=== PATIENT | female | born 1970 | race Caucasian/White ===

== ENCOUNTER → 2017-03-13 | Outpatient (CLI) | payer OTHER ==
[~2017-03-13] MED LIST: ANTIVERT/2525 MG PO; ZOFRAN ODT4 MG SL
[2017-03-14 14:07] LABS: LYME AB/TOTAL IMMUNOGLOBULINS <0.91 ISR (0.00-0.90)
== END | disposition home or self-care (01) ==
LOC: LAB 16:13
PROVIDERS: Physician Assistant
DX: R20.0 Anesthesia of skin (principal)

== ENCOUNTER 2025-01-19 01:21 | Emergency (ER) | payer OTHER ==
[~2025-01-19] VITALS: Ht 170.1 cm; Wt 105.2 kg
[2025-01-19 02:12] LABS: BASO # 0.1 10*3/uL (0.0-0.1); BASO % 0.7 % (0.0-1.0); EOS # 0.3 10*3/uL (0.0-0.4); EOS % 2.9 % (1.0-4.0); MEAN CORPUSCULAR HGB 31.7 pg (27.0-31.0); MEAN CORPUSCULAR HGB CONC 33.3 g/dl (33.0-37.0); MEAN PLATELET VOLUME 9.4 fl (9.6-12.3); MONO # 0.6 10*3/uL (0.1-1.0); MONO % 6.2 % (3.0-9.0); NEUT # 6.9 10*3/uL (2.3-7.9); NEUT % 72.3 % (47.0-73.0); PLATELET COUNT AUTOMATED 236 10*3/uL (130-400); RED BLOOD COUNT 4.42 10*6/uL (4.10-5.10); RED CELL DISTRI WIDTH 13.5 % (0-14.5); WHITE BLOOD COUNT 9.5 10*3/uL (4.8-10.8)
[2025-01-19 02:41] LABS: ALKALINE PHOSPHATASE 109 U/L (46-116); BUN 16 mg/dl (9-23); CHLORIDE 106 mmol/L (98-107); CPK 85 U/L (34-171); LIPASE 48 U/L (12-53); POTASSIUM 3.7 mmol/L (3.4-5.1); SGPT/ALT 123 U/L (5-49); TOTAL PROTEIN 6.4 gm/dL (6.0-8.0)
[2025-01-19] MEDS ORDERED: diphenhydrAMINE hydrochloride 50 MG/ML VIAL IV ONE (04:40)
[2025-01-19] MEDS ORDERED: Pantoprazole Sodium 40 MG VIAL IV ONE (04:40)
[2025-01-19] MEDS ORDERED: Metoclopramide Hydrochloride 10 MG/2 ML VIAL IV ONE (04:40)
[2025-01-19] MEDS ORDERED: REGLAN10 M1 PO (04:42)
[2025-01-19] MEDS ORDERED: Ondansetron4 MG PO (04:42)
== END 2025-01-19 05:03 | disposition home or self-care (01) ==
LOC: ED 01:21
PROVIDERS: Emergency Medicine
DX: K29.00 Acute gastritis without bleeding (principal); N28.9 Disorder of kidney and ureter, unspecified; R74.01 Elevation of levels of liver transaminase levels; E78.5 Hyperlipidemia, unspecified; Z90.49 Acquired absence of other specified parts of digestive tract; Z88.6 Allergy status to analgesic agent; Z88.8 Allergy status to other drugs, medicaments and biological substances